=== PATIENT | male | born 1945 | race Hispanic/Latino ===

== ENCOUNTER 2017-07-05 10:16 | Observation (INO) | payer OTHER ==
[~2017-07-05] VITALS: Ht 167.6 cm; Wt 79.5 kg
[~2017-07-05 10:16] MED LIST: ATORVASTATIN CA20 MG PO; COUMADIN3 MG PO; GLIMEPIRIDE2 MG PO; LEVOCETIRIZINE D5 MG PO; LISINOPRIL10 MG PO; METFORMIN HCL500 M2 PO; METOPROLOL TART50 MG PO; PIOGLITAZONE HC45 MG PO
[2017-07-05] MEDS ORDERED: ONDANSETRON HCL 4 MG ORAL DISINTEGRATING TAB PO ONE (10:45)
[2017-07-05] MEDS ORDERED: CLONIDINE HCL 0.2 MG TAB PO ONE (10:45)
[2017-07-05 11:15] LABS: BASOPHILS # (AUTO) 0.1 (0.0-0.1); BASOPHILS % 0.8 % (0.0-1.0); EOSINOPHILS # (AUTO) 0.1 (0.0-0.4); EOSINOPHILS % 0.5 % (0.0-6.0); HEMATOCRIT 44.3 % (38.2-49.6); HEMOGLOBIN 15.5 g/dL (14.0-18.0); LYMPHOCYTES # (AUTO) 2.3 (1.0-3.2); LYMPHOCYTES % 23.9 % (18.0-39.1); MEAN CORPUSCULAR VOLUME 91.5 fL (81-99); MONOCYTES % 10.1 % (4.4-11.3); NEUTROPHILS # (AUTO) 6.3 (2.1-6.9); NEUTROPHILS % 64.4 % (38.7-80.0); PLATELET COUNT 262 x10e3/uL (140-360); RED BLOOD COUNT 4.84 x10e6/uL (4.3-5.7); RED CELL DISTRIBUTION WIDTH 13.5 % (11.7-14.4)
[2017-07-05 11:27] LABS: INR 1.25; PARTIAL THROMBOPLASTIN TIME 32.4 seconds (23.8-35.5); PROTHROMBIN TIME 14.8 seconds (11.9-14.5)
[2017-07-05 11:36] LABS: ALANINE AMINOTRANSFERASE 40 IU/L (0-55); ALBUMIN 4.1 g/dL (3.5-5.0); ALBUMIN/GLOBULIN RATIO 0.9 (0.8-2.0); ALKALINE PHOSPHATASE 75 IU/L (40-150); BLOOD UREA NITROGEN 30 mg/dL (7-26); BUN/CREATININE RATIO 18 (6-25); CALCIUM 9.6 mg/dL (8.4-10.2); CARBON DIOXIDE 18 mmol/L (22-29); CHLORIDE 96 mmol/L (98-107); CREATINE KINASE 73 IU/L (30-200); CREATININE, SERUM 1.69 mg/dL (0.72-1.25); EST GLOMERULAR FILTRATION RATE 40 ML/MIN (60-); GLUCOSE 163 mg/dL (74-118); SODIUM 133 mmol/L (136-145)
--- NOTE | 2017-07-05 11:39 | Diagnostic Imaging Report ---
PROCEDURE: CHEST SINGLE (PORTABLE) COMPARISON: None. INDICATIONS: HTN FINDINGS: The lungs are well-inflated. No focal airspace consolidation, pleural effusion, or pneumothorax. Tortuosity and atherosclerotic calcification of the thoracic aorta with otherwise normal heart size for technique. No pulmonary edema. No acute osseous abnormality. CONCLUSION: No acute cardiopulmonary abnormality. Dictated by: Too Pierce M.D. on 07/05/2017 at 11:42 Electronically approved by: Too Pierce M.D. on 07/05/2017 at 11:42
[2017-07-05] MEDS ORDERED: MAXZIDE 37.5 M1 EACH PO (13:25)
[2017-07-05] MEDS ORDERED: CRESTOR10 MG PO (13:25)
[2017-07-05] MEDS ORDERED: VITAMIN D1000 UNI1 PO (13:25)
[2017-07-05] MEDS ORDERED: WARFARIN SODIUM2 MG PO (13:25)
--- NOTE | 2017-07-05 15:21 | Diagnostic Imaging Report ---
Exam: Head CT without contrast History: Headache. Comparison studies: None Technique: Axial images were obtained from the skull base to the vertex. Coronal and sagittal images reconstructed from the axial data. Intravenous contrast: None Findings: Scalp: No abnormalities. Bones: No fractures, blastic or lytic lesions. Brain sulci: Mildly prominent. Ventricles: Mild compensatory dilatation. No hydrocephalus. Extra-axial spaces: No masses, no fluid collection. Parenchyma: No mass, acute hemorrhage or acute cortical vascular insults. There are chronic cortical-subcortical insults in the left frontal lobe and left parietal lobe in the left MCA territory and along the left MCA watershed border zone. Sellar/suprasellar region: No abnormalities. Craniocervical junction: Patent foramen magnum. No Chiari one malformation. Incidental findings: Atherosclerotic calcifications in the carotid siphons and left intradural vertebral artery. Bilateral intraocular lens replacements related to previous cataract surgery. IMPRESSION: No acute intracranial abnormalities. Chronic findings: 1. Mild generalized volume loss. 2. Left frontal and parietal insults in the left MCA territory/MCA border zone. Recommend cervical and intracranial CTA or MRA to exclude the possibility of significant left ICA or MCA disease. Signed by: Dr. Too Lovett M.D. on 07/05/2017 3:17 PM
[2017-07-05] MEDS ORDERED: ONDANSETRON HCL 4 MG ORAL DISINTEGRATING TAB PO PRN (16:30)
--- OUTSIDE RECORDS SUMMARY | 2017-07-05 16:39 | XMS REPORT ---
Author Author [facility] Address Unknown Phone Unavailable Care Team Providers Care Charter Pilot Name Role Phone AXEL LANDEROS Unavailable Unavailable Problems This patient has no known problems. Allergies, Adverse Reactions, Alerts This patient has no known allergies or adverse reactions. Medications This patient has no known medications. Results Test Description Test Time Test Comments Text Results Atomic Results Result Comments CHEST SINGLE (PORTABLE) [place] [address] Patient Name: DARY OLIVARES MR #: [id number] : 1945 Age/Sex: 72/M Req #: [id number] Adm Physician: Ordered by: MARIAN NARVAEZ SHIPFITTER APPRENTICE Report #: [id number] Location: ER Room/Bed: Procedure: [id number] DX/CHEST SINGLE (PORTABLE) Exam Date: 07/05/17 Exam Time: 1128 REPORT STATUS: Signed PROCEDURE: CHEST SINGLE (PORTABLE) COMPARISON: None. INDICATIONS: HTN FINDINGS: The lungs are well-inflated. No focal airspace consolidation, pleural effusion, or pneumothorax. Tortuosity and atherosclerotic calcification of the thoracic aorta with otherwise normal heart size for technique. No pulmonary edema. No acute osseous abnormality. CONCLUSION: No acute cardiopulmonary abnormality. Dictated by: Merlyn Estrada M.D. on 07/05 at 11:42 Electronically approved by: Merlyn Estrada M.D. on 2017 at 11:42 Dictated By: MERLYN ESTRADA MD 1142 Transcribed By: ROBIN on 07/05/17 1142 COPY TO: MARIAN NARVAEZ NP CT BRAIN WO [place] [id number] [place] [address] Patient Name: DARY OLIAVRES MR #: [id number] : 1945 Age/Sex: 72/M Req # : [id number] Adm Physician: Ordered by: MARIAN NARVAEZ NP Report #: [id number] Location: ER Room/Bed: Procedure: [id number] CT/CT BRAIN WO Exam Date: 07/05/17 Exam Time: 1120 REPORT STATUS: Signed Exam: Head CT without contrast History: Headache. Comparison studies: None Technique: Axial images were obtained from the skull base to the vertex. Coronal and sagittal images reconstructed from the axial data. Intravenous contrast: None Findings: Scalp: No abnormalities. Bones: No fractures, blastic or lytic lesions. Brain sulci: Mildly prominent. Ventricles: Mild compensatory dilatation. No hydrocephalus. Extra-axial spaces: No masses, no fluid collection. Parenchyma: No mass, acute hemorrhage or acute cortical vascular insults. There are chronic cortical-subcortical insults in the left frontal lobe and left parietal lobe in the left MCA territory and along the left MCA watershed border zone. Sellar/suprasellar region: No abnormalities. Craniocervical junction: Patent foramen magnum. No Chiari one malformation. Incidental findings: Atherosclerotic calcifications in the carotid siphons and left intradural vertebral artery. Bilateral intraocular lens replacements related to previous cataract surgery. IMPRESSION: No acute intracranial abnormalities. Chronic findings: 1. Mild generalized volume loss. 2. Left frontal and parietal insults in the left MCA territory/MCA border zone. Recommend cervical and intracranial CTA or MRA to exclude the possibility of significant left ICA or MCA disease. Signed by: Dr. Merlyn Lovett M.D. on 07/05/2017 3:17 PM Dictated By: MERLYN LOVETT MD [id number] Transcribed By: DAVIE on 07/05/17 3866 COPY TO: MARIAN NARVAEZ NP
[2017-07-05] MEDS ORDERED: DEXTROSE 50% SYRINGE 50 ML IV PRN (16:45)
[2017-07-05] MEDS ORDERED: NON-FORMULARY MEDICATION (Levocetirizine Dihydrochloride 5 MG) PO SCH (17:00)
[2017-07-05] MEDS ORDERED: LORATADINE 10 MG TAB PO PRN (17:15)
[2017-07-05 18:15] VITALS: BP 209/115
[2017-07-05 18:20] VITALS: BP 209/115
[2017-07-05] MEDS ORDERED: LISINOPRIL 20 MG TAB PO ONE (18:30)
[2017-07-05] MEDS: METFORMIN HCL 500 MG TAB CR PO SCH (18:40)
[2017-07-05] MEDS: METOPROLOL TARTRATE 50 MG TAB PO SCH (18:40)
[2017-07-05 19:10] VITALS: BP 152/80
[2017-07-05] MEDS: INSULIN REGULAR, HUMAN 100 UNIT/1 ML 3ML VIAL SQ SCH (20:34)
[2017-07-05] MEDS ORDERED: ATORVASTATIN 20 MG TAB PO SCH (21:00)
[2017-07-05] MEDS ORDERED: SIMVASTATIN 20 MG TAB PO SCH (21:00)
[2017-07-05] MEDS ORDERED: SIMVASTATIN 40 MG TAB PO SCH (21:00)
[2017-07-06] VITALS: BP 100/65
[2017-07-06 00:09] VITALS: BP 80/55
[2017-07-06 01:03] VITALS: BP 100/65
[2017-07-06 05:00] VITALS: BP 99/58
[2017-07-06 05:38] VITALS: BP 99/58
[2017-07-06 06:09] LABS: BASOPHILS % 0.6 % (0.0-1.0); EOSINOPHILS # (AUTO) 0.2 (0.0-0.4); HEMOGLOBIN 12.7 g/dL (14.0-18.0); LYMPHOCYTES # (AUTO) 2.5 (1.0-3.2); LYMPHOCYTES % 37.9 % (18.0-39.1); MEAN CORPUSCULAR HEMOGLOBIN 31.8 pg (28-32); MEAN CORPUSCULAR HGB CONC 34.3 g/dL (31-35); MEAN CORPUSCULAR VOLUME 92.5 fL (81-99); MONOCYTES # (AUTO) 0.8 (0.2-0.8); MONOCYTES % 12.4 % (4.4-11.3); NEUTROPHILS % 45.9 % (38.7-80.0); PLATELET COUNT 212 x10e3/uL (140-360); RED CELL DISTRIBUTION WIDTH 13.6 % (11.7-14.4)
[2017-07-06 06:52] LABS: ALBUMIN 3.3 g/dL (3.5-5.0); ALBUMIN/GLOBULIN RATIO 1.1 (0.8-2.0); ANION GAP 15.6 mmol/L (8-16); CALCIUM 8.7 mg/dL (8.4-10.2); CREATININE, SERUM 2.83 mg/dL (0.72-1.25); POTASSIUM 3.6 mmol/L (3.5-5.1)
[2017-07-06 06:53] LABS: INR 1.4; PROTHROMBIN TIME 16.1 seconds (11.9-14.5)
[2017-07-06 06:54] LABS: PARTIAL THROMBOPLASTIN TIME 34.7 seconds (23.8-35.5)
[2017-07-06] MEDS: INSULIN REGULAR, HUMAN 100 UNIT/1 ML 3ML VIAL SQ SCH (07:25)
[2017-07-06] MEDS ORDERED: PIOGLITAZONE HCL 15 MG TAB PO SCH (07:30)
[2017-07-06] MEDS ORDERED: GLIMEPIRIDE 2 MG TAB PO SCH (07:30)
[2017-07-06 07:32] VITALS: BP 109/47
[2017-07-06] MEDS: METOPROLOL TARTRATE 50 MG TAB PO SCH (07:55)
[2017-07-06] MEDS: METFORMIN HCL 500 MG TAB CR PO SCH (08:10)
[2017-07-06] MEDS ORDERED: TRIAMTERENE/HCTZ 37.5-25 MG TAB PO SCH (09:00)
[2017-07-06] MEDS ORDERED: LISINOPRIL 20 MG TAB PO SCH (09:00)
[2017-07-06] MEDS ORDERED: CHOLECALCIFEROL 1,000 UNIT TAB PO SCH (09:00)
[2017-07-06] MEDS ORDERED: SIMVASTATIN 40 MG TAB PO SCH (09:00)
[2017-07-06] MEDS ORDERED: PIOGLITAZONE HCL 45 MG TAB PO SCH (09:00)
[2017-07-06] MEDS ORDERED: METOPROLOL TARTRATE 50 MG TAB PO SCH (09:00)
[2017-07-06] MEDS ORDERED: LISINOPRIL 10 MG TAB PO SCH (09:00)
[2017-07-06] MEDS ORDERED: NIFEDIPINE CR 30 MG TAB PO ONE (10:45)
[2017-07-06] MEDS ORDERED: WARFARIN SOD 2 MG TAB PO SCH (17:00)
== END 2017-07-06 10:30 | disposition home or self-care (01) ==
LOC: ER 10:16 → ERHOLD 16:36 → IMCU 17:27
PROVIDERS: ADMIT Internal Medicine; ATTEND Internal Medicine
DX: R51 Headache (principal); E87.1 Hypo-osmolality and hyponatremia; I10 Essential (primary) hypertension; R11.2 Nausea with vomiting, unspecified
CPT/HCPCS: 36415 ×2; 70450; 71045; 80053 ×2; 82550; 82553; 82948 ×2; 84484; 85025 ×2; 85610 ×2; 85730 ×2; 93005; 99284; G0378 ×2

== ENCOUNTER 2018-01-18 08:55 | Emergency (ER) | payer OTHER ==
[~2018-01-18] VITALS: Ht 167.6 cm; Wt 79.4 kg
[~2018-01-18 08:55] MED LIST changes: +CRESTOR10 MG PO; +MAXZIDE 37.5 M1 EACH PO; +VITAMIN D1000 UNI1 PO; +WARFARIN SODIUM2 MG PO
[2018-01-18] MEDS ORDERED: PHYTONADIONE 10 MG/ML AMP SQ NR (09:30)
[2018-01-18 09:39] LABS: BASOPHILS # (AUTO) 0.1 (0.0-0.1); BASOPHILS % 0.7 % (0.0-1.0); EOSINOPHILS # (AUTO) 0.5 (0.0-0.4); EOSINOPHILS % 4.2 % (0.0-6.0); HEMATOCRIT 34.3 % (38.2-49.6); HEMOGLOBIN 12.4 g/dL (14.0-18.0); LYMPHOCYTES # (AUTO) 2.5 (1.0-3.2); LYMPHOCYTES % 22.7 % (18.0-39.1); MEAN CORPUSCULAR HEMOGLOBIN 30.5 pg (28-32); MEAN CORPUSCULAR HGB CONC 36.2 g/dL (31-35); MEAN CORPUSCULAR VOLUME 84.3 fL (81-99); MONOCYTES % 8.8 % (4.4-11.3); NEUTROPHILS # (AUTO) 6.9 (2.1-6.9); NEUTROPHILS % 63.1 % (38.7-80.0); PLATELET COUNT 237 x10e3/uL (140-360); RED BLOOD COUNT 4.07 x10e6/uL (4.3-5.7); RED CELL DISTRIBUTION WIDTH 12.2 % (11.7-14.4)
[2018-01-18 09:52] LABS: INR 5.79; PROTHROMBIN TIME 55.6 seconds (11.9-14.5)
[2018-01-18 10:01] LABS: ALBUMIN 3.4 g/dL (3.5-5.0); ALBUMIN/GLOBULIN RATIO 0.9 (0.8-2.0); ANION GAP 16.6 mmol/L (8-16); CALCIUM 9.3 mg/dL (8.4-10.2); CREATININE, SERUM 3.09 mg/dL (0.72-1.25); POTASSIUM 3.6 mmol/L (3.5-5.1)
[2018-01-18 12:12] LABS: INR 5.79; PROTHROMBIN TIME 55.6 seconds (11.9-14.5)
[2018-01-18 13:02] VITALS: BP 128/72
== END 2018-01-18 12:55 | disposition home or self-care (01) ==
LOC: ER 08:55
DX: Z03.89 Encounter for observation for other suspected diseases and conditions ruled out (principal)
CPT/HCPCS: 36415; 80053; 85025; 85610; 86850; 86900; 99283; J3430

== ENCOUNTER 2019-04-11 10:24 | Inpatient (IN) | payer OTHER ==
[~2019-04-11] VITALS: Ht 167.6 cm; Wt 75.7 kg
[2019-04-11 11:04] LABS: BASOPHILS % 0.5 % (0.0-1.0); EOSINOPHILS % 0.3 % (0.0-6.0); HEMATOCRIT 34.9 % (38.2-49.6); HEMOGLOBIN 11.9 g/dL (14.0-18.0); LYMPHOCYTES # (AUTO) 0.6 (1.0-3.2); LYMPHOCYTES % 8.1 % (18.0-39.1); MEAN CORPUSCULAR HEMOGLOBIN 30.1 pg (28-32); MEAN CORPUSCULAR HGB CONC 34.1 g/dL (31-35); MEAN CORPUSCULAR VOLUME 88.1 fL (81-99); MONOCYTES # (AUTO) 1.2 (0.2-0.8); MONOCYTES % 15.7 % (4.4-11.3); NEUTROPHILS # (AUTO) 5.4 (2.1-6.9); NEUTROPHILS % 73.4 % (38.7-80.0); PLATELET COUNT 179 x10e3/uL (140-360); RED BLOOD COUNT 3.96 x10e6/uL (4.3-5.7); RED CELL DISTRIBUTION WIDTH 14.2 % (11.7-14.4)
[2019-04-11 11:20] LABS: INR 1.64; PROTHROMBIN TIME 20.6 seconds (11.9-14.5)
[2019-04-11 11:21] LABS: PARTIAL THROMBOPLASTIN TIME 42.7 seconds (23.8-35.5)
--- NOTE | 2019-04-11 11:22 | Diagnostic Imaging Report ---
EXAMINATION: CHEST SINGLE (PORTABLE) INDICATION: Dizziness COMPARISON: None FINDINGS: LINES/TUBES:None LUNGS:The lungs are well-inflated. No focal consolidation or pulmonary edema. PLEURA:No pleural effusion or pneumothorax. MEDIASTINUM:The cardiomediastinal silhouette appears normal in size and shape. BONES/SOFT TISSUES:No acute osseous injury. ABDOMEN:No free air under the diaphragm. IMPRESSION: No focal pneumonia or pulmonary edema. Signed by: Krishan Concepcion MD on 04/11/2019 11:20 AM
[2019-04-11 11:38] LABS: CREATINE KINASE MB 64.9 ng/mL (0-5.0)
[2019-04-11 11:40] LABS: ALBUMIN 3.7 g/dL (3.5-5.0); ALBUMIN/GLOBULIN RATIO 0.8 (0.8-2.0); ANION GAP 16.2 mmol/L (8-16); CALCIUM 9.1 mg/dL (8.4-10.2); CREATININE, SERUM 3.92 mg/dL (0.72-1.25); POTASSIUM 3.2 mmol/L (3.5-5.1)
--- NOTE | 2019-04-11 11:42 | Diagnostic Imaging Report ---
Exam: Head CT without contrast History: Dizziness Comparison studies: Head CT 07/05/2017 Technique: Axial images were obtained from the skull base to the vertex. Coronal and sagittal images reconstructed from the axial data. Dose modulation, iterative reconstruction, and/or weight based adjustment of the mA/kV was utilized to reduce the radiation dose to as low as reasonably achievable. Radiation dose: Total DLP: 921.4 mGy*cm. Estimated effective dose: DLP x 0.015 Intravenous contrast: None Findings: Scalp: No abnormalities. Bones: No fractures, blastic or lytic lesions. Brain sulci: Mildly prom. Ventricles: Mild compensatory dilatation. No hydrocephalus. Extra-axial spaces: No masses, no fluid collection. Parenchyma: No mass, acute hemorrhage or acute cortical insults. Chronic cortical/subcortical insults in the left frontal lobe and left parietal lobe along the left MCA along the external cortical and internal watershed border zones. Small chronic left striatocapsular lacunar and left anterior thalamocapsular lacunar infarcts are retrospectively present on the prior exam but are more conspicuous on the current exam due to differences in imaging technique. No mass, acute hemorrhage or acute cortical insults. Sellar/suprasellar region: No abnormalities. Craniocervical junction: Patent foramen magnum. No Chiari one malformation. Incidental findings: Bilateral intraocular lens or placement. Atherosclerotic calcifications in the carotid siphons. An in the left intradural vertebral artery. IMPRESSION: No acute intracranial abnormalities or changes from the prior head CT of 07/05/2017. Chronic findings: 1. Mild generalized parenchymal volume loss. 2. Chronic left frontal and parietal infarcts along the left MCA watershed/border zone and chronic left striatocapsular and thalamocapsular lacunar infarcts. Signed by: Dr. Too Lovett M.D. on 04/11/2019 11:40 AM
[2019-04-11] MEDS ORDERED: SODIUM CHLORIDE 0.9% 1000ML 1,000 ML IV STA ×2 (12:09→14:46)
[2019-04-11 13:14] LABS: CLARITY,URINE CLEAR (CLEAR); COLOR,URINE YELLOW (YELLOW); LEUKOCYTE ESTERASE ,URINE NEGATIVE (NEGATIVE); NITRITE,URINE NEGATIVE (NEGATIVE); PROTEIN,URINE DIPSTICK 3+ (NEGATIVE)
[2019-04-11 13:15] LABS: BILIRUBIN,URINE NEGATIVE (NEGATIVE); KETONES,URINE NEGATIVE (NEGATIVE); URINE UROBILINOGEN 0.2 mg/dL (0.2 - 1)
[2019-04-11 13:28] LABS: BACTERIA,URINE RARE /HPF; EPITHELIAL CELLS,URINE FEW /LPF
[2019-04-11] MEDS ORDERED: SODIUM BICARBONATE 8.4% SYRING 150 ML in DEXTROSE 5% 1,000 ML IV NR (15:00)
[2019-04-11] MEDS ORDERED: ONDANSETRON HCL INJ 2MG/ML 2ML 2 MG/ML VIAL IV PRN (15:00)
[2019-04-11] MEDS: CEFTRIAXONE SOD 1 GM/NS 50 ML 50 ML IV SCH (15:37)
--- NOTE | 2019-04-11 15:53 | NUR ---
2nd liter bolus infusing, rocepin ivpb initiated. Crackers and lawton given, awaiting dinner tray. Awaiting inpatient bed.
[2019-04-11 18:47] LABS: CREATINE KINASE MB 63.6 ng/mL (0-5.0)
[2019-04-11 20:00] VITALS: BP 130/67
--- NOTE | 2019-04-11 22:00 | NUR ---
PATIENT IS RESTING IN BED AOX3, NO SIGNS OF RESPIRATORY DISTRESS NOTED. IS AT BEDSIDE AND PATIENT VOICES NO PAIN AT THIS TIME. IV FLUIDS ARE RUNNING AT ORDERED RATE AND PATIENT VOICED THAT THEY WILL USE CALL LIGHT ASK FOR ASSISTANCE TO AMBULATE. BED IS IN LOWEST POSITION, BOTH SIDE RAILS ARE UP, CALL LIGHT WITHIN REACH WILL CONTINUE TO MONITOR.
[2019-04-11 23:25] VITALS: BP 130/67
--- NOTE | 2019-04-11 23:44 | Consultation ---
DATE OF CONSULTATION: 04/11/2019 HISTORY OF PRESENT ILLNESS: Mr. Kevon Fenton is a 74-year-old gentleman, who is a relatively poor historian. Apparently brought by his because the patient was feeling " wobbly" as well as quite weak. There was some reported nausea earlier and vomiting, but that has subsided. He is currently awake, alert, following commands, very poor historian. Denies any headache, fever, chills, chest pain, or shortness of breath. He has existing history of hyperlipidemia and hypertension. Sees renal specialist as an outpatient for his chronic kidney disease. LABORATORY DATA: His labs show white count 7.4, hemoglobin is 11.9. Sodium 138, potassium 3.2, bicarbonate 18, BUN 35, creatinine 3.92. CK 6005. His urinalysis shows dipstick positive protein, 3+ blood, 6 to 10 rbc's, 11 to 20 wbc's. The is not sure if the patient had any fever. ALLERGIES: THERE ARE NO REPORTED DRUG ALLERGIES. CURRENT MEDICATIONS: The patient receiving ceftriaxone 1 g IV q.12h. we gave him 2 L normal saline bolus. Currently, he is on D5 water with 3 amps of bicarb. He follows up with Dr. Patel as an outpatient. Has been on atorvastatin at home along with levocetirizine on a p.r.n. basis, metoprolol and Coumadin. Here, he had an INR done, which showed an INR 1.64. Imaging studies had a brain CT, which was reported as no acute intracranial abnormality, chronic left frontal and parietal infarcts around his left MCA, and chest x-ray shows no focal pneumonia or pulmonary edema. PAST MEDICAL HISTORY: As above including history of CVA three times. No history of UT or coronary artery disease apparently, but history of chronic kidney disease, most likely stage 3. PHYSICAL EXAMINATION: GENERAL: The patient is lying supine, in no apparent distress. VITAL SIGNS: Blood pressure of 129/68, pulse 87, afebrile, oxygen saturation 100%. HEAD AND NECK: Arcus senilis noted. Oral mucosa dry. Neck veins flat. LUNGS: Supine exam, relatively clear. No rales. HEART: S1 and S2 audible. ABDOMEN: Otherwise soft, nontender. No apparent visceromegaly. Impact percussion noted over the bladder area, which could be suggestive of distended bladder. EXTREMITIES: Lower extremities; no edema. IMPRESSION AND PLAN: Acute kidney injury in a patient with chronic kidney disease stage 3, hypokalemia, rhabdomyolysis. Agree to discontinue Lipitor. We will have a Valadez catheter placed. Obtain urine chemistries, calculate fraction excretion of sodium. Continue IV hydration. I will send urine culture. Continue with IV bicarbonate, attempt to alkalinize urine. Agree with empiric antibiotics. No acute CVA on CT scan. Right-sided lower extremity weakness noted. Please see orders. MD JODY Calle/MODL /[id number]
[2019-04-12] VITALS (8 sets, daily range): BP systolic 104–143; BP diastolic 50–71
[2019-04-12] MEDS: CEFTRIAXONE SOD 1 GM/NS 50 ML 50 ML IV SCH ×2 (03:48→14:48)
[2019-04-12 06:13] LABS: BASOPHILS % 0.6 % (0.0-1.0); EOSINOPHILS % 0.4 % (0.0-6.0); HEMATOCRIT 28.7 % (38.2-49.6); HEMOGLOBIN 9.9 g/dL (14.0-18.0); LYMPHOCYTES # (AUTO) 1.4 (1.0-3.2); LYMPHOCYTES % 28.2 % (18.0-39.1); MEAN CORPUSCULAR HEMOGLOBIN 30.2 pg (28-32); MEAN CORPUSCULAR HGB CONC 34.5 g/dL (31-35); MEAN CORPUSCULAR VOLUME 87.5 fL (81-99); MONOCYTES # (AUTO) 0.8 (0.2-0.8); NEUTROPHILS # (AUTO) 2.6 (2.1-6.9); NEUTROPHILS % 53.4 % (38.7-80.0); PLATELET COUNT 160 x10e3/uL (140-360); RED BLOOD COUNT 3.28 x10e6/uL (4.3-5.7); RED CELL DISTRIBUTION WIDTH 14.2 % (11.7-14.4)
[2019-04-12 06:51] LABS: ALBUMIN 2.8 g/dL (3.5-5.0); ALBUMIN/GLOBULIN RATIO 0.8 (0.8-2.0); ANION GAP 10.6 mmol/L (8-16); CALCIUM 7.6 mg/dL (8.4-10.2); CREATININE, SERUM 3.44 mg/dL (0.72-1.25)
[2019-04-12 06:58] LABS: POTASSIUM 2.6 mmol/L (3.5-5.1)
--- NOTE | 2019-04-12 08:16 | NUR ---
Attempted to call Dr. Toledo regarding potassium level 2.6. Awaiting call back
[2019-04-12] MEDS ORDERED: TRAZODONE HCL50 MG PO (08:41)
[2019-04-12] MEDS ORDERED: TRIAMTERENE-HCTZ1 EA PO (08:41)
[2019-04-12] MEDS ORDERED: CRESTOR10 MG PO (08:41)
[2019-04-12] MEDS ORDERED: GLIMEPIRIDE2 MG PO (08:41)
[2019-04-12] MEDS ORDERED: AMLODIPINE BESYL5 MG PO (08:41)
[2019-04-12] MEDS ORDERED: WARFARIN SOD 2 MG TAB PO SCH (09:00)
[2019-04-12] MEDS ORDERED: SIMVASTATIN 40 MG TAB PO SCH (09:00)
--- NOTE | 2019-04-12 09:27 | NUR ---
Nutrition Screen Note RD Recommendation for Physician: -Continue current diet per MD. -Consider renal diet pending renal lab trends. Plan of Care: RD following, monitoring for tolerance and adequacy. Education provided,. Nutrition reason for involvement: Diagnosis Primary Diagnose(s): Acute on chronic renal failure PMH: HLD, HTN, CKD Ht: 66 in Wt: 167 lb BMI: 27.0 kg/m2 IBW: [address] Assessment: (04/11) : 74 YOM admitted for renal failure with PMH listed above. The pt was seen resting in bed with at bedside. The answered all questions. She reported the pt has a good appetite and denied any recent weight loss. Pt appears nourished. The pt has not had a BM yet here in the hospital, encouraged the pt if pt begins to have constipation to let the MD know. She denied N/V/chewing or swallowing issues for the pt as well as any food allergies. She was open to accepted education regarding SHREYAS and CKD diet education. K-2.6, being replaced. Chart reviewed. Labs and meds reviewed. Will continue to monitor. Current Diet: cardiac diet Malnutrition Evaluation 04/11 The patient does not meet criteria for a specified degree of malnutrition at this time. Will re-evaluate at follow-up as appropriate. Diet Education Needs Assessment: Diet education indicated, - agreeable Diet Adequacy: Meeting calorie needs, Meeting protein needs Learner(s): pts Barriers: none Cultural/Language Modifications: none Readiness: acceptance Method: discussion, handout Topics: SHREYAS and CKD renal diet MNT Understanding/Compliance: verbalized understanding, anticipate good compliance Nutrition Care Level: low Addendum: 04/12/19 at 0930 by Vaishali No DIET signed: Vaishali No RD, LD
[2019-04-12] MEDS: DEXTROSE 5%/0.9% SOD CHL 1,000 ML IV SCH ×2 (09:36→17:00)
[2019-04-12] MEDS: AMLODIPINE BESYLATE 5 MG TAB PO SCH (09:36)
[2019-04-12 09:50] LABS: CREATINE KINASE MB 31.5 ng/mL (0-5.0)
[2019-04-12] MEDS ORDERED: POTASSIUM CHLORIDE 10MEQ EA PO ONE (09:50)
--- NOTE | 2019-04-12 10:05 | NUR ---
Patient educated on using the urinal to measure accurate output. Also, let him know when he has a BM a sample needs to be collected
[2019-04-12] MEDS ORDERED: LEVOTHYROXINE50 MCG PO (10:29)
[2019-04-12] MEDS ORDERED: METOPROLOL TART50 MG PO (10:29)
--- NOTE | 2019-04-12 13:32 | NUR ---
Stool sample collected and taken to lab
[2019-04-12] MEDS ORDERED: POTASSIUM CHLORIDE 20MEQ/100ML 200 ML IV ONE (15:00)
--- NOTE | 2019-04-12 15:42 | Diagnostic Imaging Report ---
Renal ultrasound, 04/12/2019. History: SHREYAS. Discussion: Transverse and longitudinal images of the kidneys were obtained demonstrating normal renal sizes and echogenicities. There is no evidence of hydronephrosis, mass, or renal calculus. The right kidney measures 10.0 cm and the left kidney measures 10.9 cm in length. Renal cortex measures 1.4 and 1.8 cm respectively. The urinary bladder is unremarkable. Bilateral ureteral jets are identified. Bladder volume measures 40 mL. There is no evidence of free fluid. IMPRESSION: Normal renal ultrasound. Signed by: Trever Lal on 04/12/2019 3:40 PM
[2019-04-12] MEDS ORDERED: POTASSIUM CHLORIDE 20MEQ/100ML 300 ML IV ONE (16:00)
--- NOTE | 2019-04-12 16:34 | History and Physical ---
CHIEF COMPLAINT: Lethargic, hypoglycemia, and slurred speech. HISTORY OF PRESENT ILLNESS: The patient is a 74-year-old male with chronic kidney disease stage 3, apparently he was on glimepiride diabetic medication and came in with increase in altered mental status more lethargic. His blood sugar was in 40 to 50. The patient was unable to do much at home because of his lethargy and sometimes unresponsive and also rhabdomyolysis. The patient's CK level was elevated at 6000. The patient was also dehydrated as well. The patient has not been eating or drinking. The patient is also having problem with his mobility. PAST MEDICAL HISTORY: 1. Diabetes type 2 on Amaryl. 2. Hypertension. 3. History of chronic CVA. 4. Dyslipidemia. 5. Chronic kidney disease stage 3. 6. Atrial fibrillation on anticoagulant therapy. PAST SURGICAL HISTORY: Cataract surgery. SOCIAL HISTORY: The patient lives at home with his family. No alcohol. No tobacco. ALLERGIES: NO KNOWN ALLERGIES. HOME MEDICATIONS: The patient was on: 1. Norvasc. 2. Glimepiride 2 mg twice a day. 3. Crestor. 4. Trazodone. 5. Dyazide. 6. Warfarin 2 mg daily. PHYSICAL EXAMINATION: VITAL SIGNS: Temperature is 98.5, blood pressure is 162/80, pulse rate is 107, and respirations 18. GENERAL: The patient is not in acute distress. He is awake now. HEENT: Normocephalic and atraumatic. Anicteric. NECK: Supple grossly. PULMONARY: Diminished breath sounds. CARDIOVASCULAR: Regular rate and rhythm. ABDOMEN: Soft. EXTREMITIES: No cyanosis or edema. NEUROLOGIC: The patient is awake with some confusion. LABORATORY DATA: Sodium is 138, potassium 3.6, chloride 106, bicarb 24, BUN is 35, and creatinine is 3.4. Glucose is 51. AST 127 and ALT 50. Alkaline phosphatase is 50. CK level was 6000. Troponin 0.07. WBC 4.8, hemoglobin 9.9, hematocrit 28.7, and platelets 160. Urinalysis unremarkable other than 2+ protein. Coagulation INR is 1.6. IMAGING DATA: CT scan of the brain showed that the patient had no acute abnormality. There is chronic left frontal and parietal infarct along the left middle cerebral artery watershed border zone and chronic left striata, capsular and thalamocapsular lacunar infarct. Chest x-ray otherwise unremarkable. IMPRESSION: 1. Hypoglycemic episode inducing lethargy, altered mental status, slurred speech and overall decline in ability to do ADLs. 2. Rhabdomyolysis secondary to the above, most likely. 3. Chronic kidney disease also contributing to metabolism of the diabetic medication Amaryl. PLAN: Stop diuretic and Amaryl and hold off on statin right now because of the patient's rhabdomyolysis. Place the patient on D5 normal saline at 125 cc an hour gently. Continue to replace electrolytes. Renal consult with Dr. Masoud Toledo. We will obtain a blood workup including A1c, thyroid function test, electrolytes, and renal function. MD MUNIRA Lucas/MODL /[id number]
[2019-04-12] MEDS: WARFARIN SOD 2 MG TAB PO SCH (17:33)
--- NOTE | 2019-04-12 19:07 | NUR ---
Dr. Torres notified of positive occult blood result. No new orders received.
[2019-04-12] MEDS ORDERED: TRAZODONE HCL 50 MG TAB PO PRN (21:00)
--- NOTE | 2019-04-12 21:52 | NUR ---
SPOKE TO DR. KIDD REGARDING BLOOD GLUCOSE READING 354. ORDERED TO STOP IV FLUID D5NS. NO INSULIN ORDERED
[2019-04-12] MEDS ORDERED: SODIUM CHLORIDE 0.9% 250ML 250 ML ONE (22:03)
[2019-04-13] VITALS (8 sets, daily range): BP systolic 104–132; BP diastolic 53–72
[2019-04-13] MEDS: CEFTRIAXONE SOD 1 GM/NS 50 ML 50 ML IV SCH ×2 (02:44→15:15)
[2019-04-13 05:55] LABS: BASOPHILS % 0.5 % (0.0-1.0); EOSINOPHILS # (AUTO) 0.2 (0.0-0.4); EOSINOPHILS % 3.6 % (0.0-6.0); HEMATOCRIT 30.1 % (38.2-49.6); HEMOGLOBIN 10.2 g/dL (14.0-18.0); LYMPHOCYTES # (AUTO) 1.4 (1.0-3.2); LYMPHOCYTES % 32.3 % (18.0-39.1); MEAN CORPUSCULAR HEMOGLOBIN 29.8 pg (28-32); MEAN CORPUSCULAR HGB CONC 33.9 g/dL (31-35); MONOCYTES # (AUTO) 0.7 (0.2-0.8); MONOCYTES % 16.2 % (4.4-11.3); PLATELET COUNT 173 x10e3/uL (140-360); RED BLOOD COUNT 3.42 x10e6/uL (4.3-5.7); RED CELL DISTRIBUTION WIDTH 14.3 % (11.7-14.4)
[2019-04-13 06:25] LABS: ALBUMIN 2.9 g/dL (3.5-5.0); ALBUMIN/GLOBULIN RATIO 0.9 (0.8-2.0); ANION GAP 10.5 mmol/L (8-16); CALCIUM 7.8 mg/dL (8.4-10.2); CREATININE, SERUM 2.97 mg/dL (0.72-1.25); POTASSIUM 3.5 mmol/L (3.5-5.1)
[2019-04-13 06:37] LABS: MAGNESIUM 1.5 MG/DL (1.3-2.1)
--- NOTE | 2019-04-13 07:12 | NUR ---
Received patient lying in bed with eyes open. Respiration even and unlabored without SOB. family member at bedside. Call light in reach.
[2019-04-13] MEDS: AMLODIPINE BESYLATE 5 MG TAB PO SCH (08:46)
[2019-04-13] MEDS ORDERED: DEXTROSE 50% SYRINGE 50 ML IV PRN (12:30)
[2019-04-13] MEDS ORDERED: POTASSIUM CHLORIDE 20 MEQ TAB CR PO NR (12:30)
[2019-04-13] MEDS: INSULIN LISPRO 100 UNIT/1 ML 3ML VIAL SQ SCH ×3 (12:43→21:06)
[2019-04-13] MEDS: SODIUM CHLORIDE 0.9% 1000ML 1,000 ML IV SCH ×2 (13:00→23:45)
[2019-04-13] MEDS: WARFARIN SOD 2 MG TAB PO SCH (18:14)
--- NOTE | 2019-04-13 19:15 | NUR ---
Report given to maintenance technician 2nd shift. Respiration even and unlabored without SOB. Call light in reach.
[2019-04-14 00:29] VITALS: BP 146/70
[2019-04-14] MEDS: CEFTRIAXONE SOD 1 GM/NS 50 ML 50 ML IV SCH (03:10)
[2019-04-14 05:51] VITALS: BP 123/74
[2019-04-14 06:43] LABS: ALBUMIN 2.9 g/dL (3.5-5.0); ALBUMIN/GLOBULIN RATIO 0.9 (0.8-2.0); ANION GAP 12.3 mmol/L (8-16); CALCIUM 7.8 mg/dL (8.4-10.2); CREATININE, SERUM 2.47 mg/dL (0.72-1.25); POTASSIUM 3.3 mmol/L (3.5-5.1)
--- NOTE | 2019-04-14 07:00 | NUR ---
Received bedside shift report from off going nurse. Patient resting at this time, denies pain. Call light within reach.
[2019-04-14] MEDS: INSULIN LISPRO 100 UNIT/1 ML 3ML VIAL SQ SCH (07:30)
[2019-04-14 08:26] VITALS: BP 109/54
[2019-04-14 08:53] VITALS: BP 109/54
[2019-04-14] MEDS: AMLODIPINE BESYLATE 5 MG TAB PO SCH (08:55)
[2019-04-14] MEDS: SODIUM CHLORIDE 0.9% 1000ML 1,000 ML IV SCH (08:55)
[2019-04-14] MEDS ORDERED: POTASSIUM CHLORIDE 10MEQ EA PO ONE (10:45)
[2019-04-14] MEDS ORDERED: POTASSIUM CHLORIDE 20 MEQ TAB CR PO STA (11:32)
[2019-04-14] MEDS ORDERED: POTASSIUM CHLORIDE 20 MEQ TAB CR PO ONE (11:45)
[2019-04-14 12:33] VITALS: BP 127/63
--- NOTE | 2019-04-14 15:17 | Discharge Summary ---
PRIMARY CARE PHYSICIAN: Dr. Canelo Patel. ENTRY LEVEL ACCOUNT EXECUTIVE: Dr. Masoud Toledo. FINAL DIAGNOSES: 1. Severe hypoglycemia, blood sugar in the 30-40, associated with lethargy and rhabdomyolysis secondary to immobilization. 2. Acute kidney injury, resolving. 3. Chronic kidney disease, stage 3. 4. Chronic anemia. 5. Status post dehydration. 6. Status post rhabdomyolysis. SUMMARY: A 74-year-old male was on high dose Amaryl. The patient does have chronic kidney disease. His glycohemoglobin A1c was 7.2. The patient came to the hospital with some neurological symptoms secondary to low blood sugar. The patient's blood sugar was in the 50 at home and also chronically low as well. The patient is stable. He is on warfarin for his atrial fibrillation. The patient's vital signs are stable. He was hypotensive due to dehydration. The patient at baseline. He was on diuretic including Dyazide 37.5/25 mg one tablet. He is also on Amaryl 2 mg twice a day along with the Crestor 40 mg daily. He came in with rhabdomyolysis multifactorial contributed to the patient's symptoms. Currently, the patient is stable. Vital signs are stable. He is able to eat and drink. He is back to his baseline. Spouse is very supportive and want to take the patient home. He will go home today. DISCHARGE MEDICATIONS: Including Norvasc 5 mg daily, levothyroxine 50 mcg daily, metoprolol tartrate 50 mg daily, trazodone 50 mg at bedtime, and continue with his warfarin the same. The patient will take Hemocyte Plus one tablet daily. Glucotrol XL 2.5 mg daily. The patient to follow up with Dr. Patel for his adjustment of his medication. I also discussed with the patient regarding the fecal for occult blood positive, although his hemoglobin and hematocrit are stable, trending upward as matter of 9.9 hemoglobin and then 10.2. No gross bleed. I advised the patient to follow up with electric scoop operator for outpatient endoscopy screening. The patient is otherwise stable, discharged home today. Medication reconciliation was done. MD MUNIRA Lucas/SHARON /[id number]
== END 2019-04-14 13:25 | disposition home or self-care (01) | DRG 682 ==
LOC: ER 10:27 → ERHOLD 14:58 → MED/SURG 20:50
PROVIDERS: ADMIT Internal Medicine; ATTEND Internal Medicine
DX: N17.9 Acute kidney failure, unspecified (principal); G93.41 Metabolic encephalopathy; M62.82 Rhabdomyolysis; R47.81 Slurred speech; Z86.73 Personal history of transient ischemic attack (TIA), and cerebral infarction without residual deficits; E78.5 Hyperlipidemia, unspecified; E11.22 Type 2 diabetes mellitus with diabetic chronic kidney disease; I12.9 Hypertensive chronic kidney disease with stage 1 through stage 4 chronic kidney disease, or unspecified chronic kidney disease; N18.3 Chronic kidney disease, stage 3 (moderate); I48.91 Unspecified atrial fibrillation; Z79.84 Long term (current) use of oral hypoglycemic drugs; Z79.01 Long term (current) use of anticoagulants; E11.649 Type 2 diabetes mellitus with hypoglycemia without coma; E86.0 Dehydration; E87.6 Hypokalemia; D64.9 Anemia, unspecified
CPT/HCPCS: 36415; 70450; 71045; 76770; 80053; 81001; 82270; 82550; 82552; 82553; 82570; 82607; 82746; 82948; 83036; 83540; 83735; 84100; 84300; 84466; 84484; 85025; 85610; 85730; 87086; 93005; 96372; 99284; J0696; J3480; J7030; J7042; J7050; J7070

== ENCOUNTER 2020-02-01 16:50 | Observation (INO) | payer MEDICARE, OTHER ==
[~2020-02-01] VITALS: Ht 167.6 cm; Wt 76.7 kg
[~2020-02-01 16:50] MED LIST changes: +AMLODIPINE BESYL5 MG PO; +LEVOTHYROXINE50 MCG PO; +TRAZODONE HCL50 MG PO; +TRIAMTERENE-HCTZ1 EA PO
[2020-02-01 18:04] LABS: BASOPHILS % 0.5 % (0.0-1.0); EOSINOPHILS % 0.5 % (0.0-6.0); HEMATOCRIT 31.1 % (38.2-49.6); HEMOGLOBIN 10.2 g/dL (14.0-18.0); LYMPHOCYTES % 12.3 % (18.0-39.1); MEAN CORPUSCULAR HEMOGLOBIN 31.2 pg (28-32); MEAN CORPUSCULAR HGB CONC 32.8 g/dL (31-35); MEAN CORPUSCULAR VOLUME 95.1 fL (81-99); MONOCYTES # (AUTO) 0.6 (0.2-0.8); NEUTROPHILS # (AUTO) 6.1 (2.1-6.9); NEUTROPHILS % 77.8 % (38.7-80.0); PLATELET COUNT 301 x10e3/uL (140-360); RED BLOOD COUNT 3.27 x10e6/uL (4.3-5.7); RED CELL DISTRIBUTION WIDTH 14.5 % (11.7-14.4)
[2020-02-01 18:13] LABS: CLARITY,URINE HAZY (CLEAR); COLOR,URINE YELLOW (YELLOW)
[2020-02-01 18:14] LABS: KETONES,URINE NEGATIVE (NEGATIVE); LEUKOCYTE ESTERASE ,URINE NEGATIVE (NEGATIVE); NITRITE,URINE NEGATIVE (NEGATIVE); PROTEIN,URINE DIPSTICK 1+ (NEGATIVE); URINE UROBILINOGEN 0.2 mg/dL (0.2 - 1)
[2020-02-01 18:25] LABS: ALBUMIN 3.5 g/dL (3.5-5.0); ALBUMIN/GLOBULIN RATIO 0.9 (0.8-2.0); ANION GAP 17.4 mmol/L (8-16); CALCIUM 8.9 mg/dL (8.4-10.2); CREATININE, SERUM 4.13 mg/dL (0.72-1.25); POTASSIUM 5.4 mmol/L (3.5-5.1)
[2020-02-01 18:26] LABS: BACTERIA,URINE RARE /HPF
[2020-02-01 18:27] LABS: RBC,URINE 0-5 /HPF (0-5); WBC,URINE (MAN) 0-5 /HPF (0-5)
[2020-02-01 18:31] LABS: CREATINE KINASE MB 2.3 ng/mL (0-5.0)
[2020-02-01] MEDS ORDERED: DEXTROSE 50% SYRINGE 50 ML IV STA (18:40)
[2020-02-01] MEDS ORDERED: DEXTROSE 5%/0.45% SOD CHL 1,000 ML IV ONE (18:45)
[2020-02-01] MEDS ORDERED: SODIUM BICARBONATE 8.4% INJ 50 ML SYR IV STA (18:49)
[2020-02-01] MEDS ORDERED: DEXTROSE 50% SYRINGE 50 ML IV ONE (18:50)
[2020-02-01] MEDS ORDERED: SOD POLYSTYRENE SULFONATE SUSP 15 GM/60 ML BTL PO ONE (19:00)
[2020-02-01 22:42] VITALS: BP 148/81
[2020-02-01 22:45] VITALS: BP 148/81
[2020-02-02] VITALS (8 sets, daily range): BP systolic 110–148; BP diastolic 56–78
[2020-02-02] MEDS ORDERED: DEXTROSE 50% SYRINGE 50 ML IV PRN (09:45)
[2020-02-02] MEDS ORDERED: HYDRALAZINE HCL 25 MG TAB PO PRN (10:00)
[2020-02-02] MEDS ORDERED: DEXTROSE 50% SYRINGE 50 ML IV ONE (10:15)
[2020-02-02 10:20] LABS: BASOPHILS # (AUTO) 0.1 (0.0-0.1); BASOPHILS % 0.7 % (0.0-1.0); EOSINOPHILS # (AUTO) 0.2 (0.0-0.4); EOSINOPHILS % 2.9 % (0.0-6.0); HEMATOCRIT 27.2 % (38.2-49.6); HEMOGLOBIN 8.8 g/dL (14.0-18.0); LYMPHOCYTES # (AUTO) 1.6 (1.0-3.2); LYMPHOCYTES % 22.2 % (18.0-39.1); MEAN CORPUSCULAR HEMOGLOBIN 30.8 pg (28-32); MEAN CORPUSCULAR HGB CONC 32.4 g/dL (31-35); MEAN CORPUSCULAR VOLUME 95.1 fL (81-99); MONOCYTES # (AUTO) 0.7 (0.2-0.8); MONOCYTES % 9.9 % (4.4-11.3); NEUTROPHILS # (AUTO) 4.5 (2.1-6.9); NEUTROPHILS % 63.7 % (38.7-80.0); PLATELET COUNT 250 x10e3/uL (140-360); RED BLOOD COUNT 2.86 x10e6/uL (4.3-5.7); RED CELL DISTRIBUTION WIDTH 14.6 % (11.7-14.4)
[2020-02-02] MEDS ORDERED: TRESIBA100 UNIT/1 SC (10:36)
[2020-02-02] MEDS ORDERED: PIOGLITAZONE15 MG PO (10:36)
[2020-02-02] MEDS ORDERED: GLIMEPIRIDE2 MG PO (10:36)
[2020-02-02] MEDS ORDERED: CRESTOR40 MG PO (10:36)
[2020-02-02] MEDS ORDERED: LISINOPRIL2.5 MG PO (10:36)
[2020-02-02] MEDS ORDERED: TRIAMTERENE-HCTZ1 EA PO (10:36)
[2020-02-02 10:41] LABS: ANION GAP 16.3 mmol/L (8-16); CALCIUM 8.2 mg/dL (8.4-10.2); CREATININE, SERUM 3.79 mg/dL (0.72-1.25); POTASSIUM 4.3 mmol/L (3.5-5.1)
[2020-02-02] MEDS: INSULIN LISPRO 100 UNIT/1 ML 3ML VIAL SQ SCH ×3 (11:30→20:30)
[2020-02-02 14:48] LABS: INR 1.28; PROTHROMBIN TIME 16.6 seconds (11.9-14.5)
[2020-02-03 00:14] VITALS: BP 123/75
[2020-02-03 05:22] VITALS: BP 112/68
[2020-02-03 05:56] LABS: ANION GAP 14.3 mmol/L (8-16); CALCIUM 8.2 mg/dL (8.4-10.2); CREATININE, SERUM 3.52 mg/dL (0.72-1.25); POTASSIUM 4.3 mmol/L (3.5-5.1)
[2020-02-03] MEDS: INSULIN LISPRO 100 UNIT/1 ML 3ML VIAL SQ SCH (07:30)
[2020-02-03 07:43] VITALS: BP 112/68
[2020-02-03 08:31] VITALS: BP 134/53
[2020-02-03] MEDS ORDERED: METOPROLOL TARTRATE 50 MG TAB PO SCH (09:00)
[2020-02-03] MEDS ORDERED: LEVOTHYROXINE SODIUM 50 MCG TAB PO SCH (09:00)
[2020-02-03] MEDS ORDERED: AMLODIPINE BESYLATE 5 MG TAB PO SCH (09:00)
[2020-02-03] MEDS ORDERED: TRAZODONE HCL 50 MG TAB PO PRN (09:00)
[2020-02-03] MEDS ORDERED: WARFARIN SOD 2 MG TAB PO SCH (17:00)
[2020-02-03] MEDS ORDERED: INSULIN DEGLUDEC 25 UNIT SQ SCH (21:00)
== END 2020-02-03 11:20 | disposition home or self-care (01) ==
LOC: ER 17:13 → INTOOBSV 20:35 → ERHOLD 20:35 → MED/SURG3 21:51
PROVIDERS: ADMIT Internal Medicine; ATTEND Internal Medicine
DX: E11.649 Type 2 diabetes mellitus with hypoglycemia without coma (principal); N17.9 Acute kidney failure, unspecified; N39.0 Urinary tract infection, site not specified; E87.5 Hyperkalemia; E11.22 Type 2 diabetes mellitus with diabetic chronic kidney disease; I12.9 Hypertensive chronic kidney disease with stage 1 through stage 4 chronic kidney disease, or unspecified chronic kidney disease; N18.30 Chronic kidney disease, stage 3 unspecified; E86.0 Dehydration; T38.3X5A Adverse effect of insulin and oral hypoglycemic [antidiabetic] drugs, initial encounter; Z86.73 Personal history of transient ischemic attack (TIA), and cerebral infarction without residual deficits; Z79.4 Long term (current) use of insulin
CPT/HCPCS: 36415 ×3; 70450; 71045; 80048 ×2; 80053; 81001; 82550; 82553; 82948 ×3; 83036; 84484; 85025 ×2; 85610; 93005; 99284; G0378 ×3; J7799; U0002

== ENCOUNTER 2021-03-24 09:47 | Inpatient (IN) | payer MEDICARE ==
[~2021-03-24] VITALS: Ht 160 cm; Wt 76.7 kg
[~2021-03-24 09:47] MED LIST changes: +CRESTOR40 MG PO; +LISINOPRIL2.5 MG PO; +PIOGLITAZONE15 MG PO; +TRESIBA100 UNIT/1 SC
[2021-03-24] MEDS ORDERED: PHYTONADIONE 10 MG/ML AMP SQ ONE (10:00)
[2021-03-24 10:11] LABS: BASOPHILS % 0.5 % (0.0-1.0); EOSINOPHILS # (AUTO) 0.3 (0.0-0.4); EOSINOPHILS % 4.1 % (0.0-6.0); HEMATOCRIT 27.1 % (38.2-49.6); HEMOGLOBIN 8.4 g/dL (14.0-18.0); LYMPHOCYTES # (AUTO) 1.9 (1.0-3.2); LYMPHOCYTES % 25.5 % (18.0-39.1); MEAN CORPUSCULAR HEMOGLOBIN 28.1 pg (28-32); MEAN CORPUSCULAR VOLUME 90.6 fL (81-99); MONOCYTES # (AUTO) 0.6 (0.2-0.8); MONOCYTES % 7.8 % (4.4-11.3); NEUTROPHILS # (AUTO) 4.6 (2.1-6.9); NEUTROPHILS % 60.8 % (38.7-80.0); PLATELET COUNT 350 x10e3/uL (140-360); RED BLOOD COUNT 2.99 x10e6/uL (4.3-5.7); RED CELL DISTRIBUTION WIDTH 17.9 % (11.7-14.4)
[2021-03-24 10:31] LABS: ALBUMIN 3.4 g/dL (3.5-5.0); ALBUMIN/GLOBULIN RATIO 0.9 (0.8-2.0); ANION GAP 12.5 mmol/L (8-16); CALCIUM 8.7 mg/dL (8.4-10.2); CREATININE, SERUM 2.86 mg/dL (0.72-1.25); POTASSIUM 4.5 mmol/L (3.5-5.1)
[2021-03-24 12:54] VITALS: BP 134/63
[2021-03-24 13:04] VITALS: BP 132/63
[2021-03-24] MEDS ORDERED: SODIUM CHLORIDE 0.9% 250ML 250 ML ONE (15:04)
[2021-03-24] MEDS ORDERED: TRAZODONE HCL 50 MG TAB PO PRN (16:15)
[2021-03-24] MEDS ORDERED: DEXTROSE 50% SYRINGE 50 ML IV PRN (16:15)
[2021-03-24] MEDS: INSULIN LISPRO 100 UNIT/1 ML 3ML VIAL SQ SCH ×2 (16:30→22:36)
[2021-03-24 16:54] LABS: INR 2.85; PROTHROMBIN TIME 31.5 seconds (11.9-14.5)
[2021-03-24] MEDS: METOPROLOL TARTRATE 25 MG TAB PO SCH (17:00)
[2021-03-24] MEDS ORDERED: PHYTONADIONE 10 MG/ML AMP SC ONE (17:15)
[2021-03-24] MEDS ORDERED: EPOETIN ALFA-EPBX 10,000 UNIT/ML VIAL SC SCH (18:00)
[2021-03-24 20:00] VITALS: BP 104/57
[2021-03-24] MEDS: INSULIN GLARGINE 100 UNITS/ML VIAL SQ SCH (22:36)
[2021-03-24 23:06] VITALS: BP 104/57
[2021-03-25] VITALS (8 sets, daily range): BP systolic 112–138; BP diastolic 58–72
[2021-03-25 06:08] LABS: BASOPHILS # (AUTO) 0.1 (0.0-0.1); BASOPHILS % 0.6 % (0.0-1.0); EOSINOPHILS # (AUTO) 0.2 (0.0-0.4); EOSINOPHILS % 2.4 % (0.0-6.0); HEMATOCRIT 26.9 % (38.2-49.6); HEMOGLOBIN 8.2 g/dL (14.0-18.0); LYMPHOCYTES # (AUTO) 2.6 (1.0-3.2); LYMPHOCYTES % 26.4 % (18.0-39.1); MEAN CORPUSCULAR HEMOGLOBIN 27.6 pg (28-32); MEAN CORPUSCULAR HGB CONC 30.5 g/dL (31-35); MEAN CORPUSCULAR VOLUME 90.6 fL (81-99); MONOCYTES # (AUTO) 0.8 (0.2-0.8); MONOCYTES % 8.2 % (4.4-11.3); NEUTROPHILS % 61.3 % (38.7-80.0); PLATELET COUNT 376 x10e3/uL (140-360); RED BLOOD COUNT 2.97 x10e6/uL (4.3-5.7); RED CELL DISTRIBUTION WIDTH 17.9 % (11.7-14.4)
[2021-03-25 06:33] LABS: INR 2.3; PROTHROMBIN TIME 26.6 seconds (11.9-14.5)
[2021-03-25] MEDS: LEVOTHYROXINE SODIUM 50 MCG TAB PO SCH (06:50)
[2021-03-25 06:59] LABS: ALBUMIN 3.6 g/dL (3.5-5.0); ALBUMIN/GLOBULIN RATIO 0.9 (0.8-2.0); ANION GAP 14.6 mmol/L (8-16); CALCIUM 9.2 mg/dL (8.4-10.2); CREATININE, SERUM 2.43 mg/dL (0.72-1.25); POTASSIUM 4.6 mmol/L (3.5-5.1)
[2021-03-25] MEDS: INSULIN LISPRO 100 UNIT/1 ML 3ML VIAL SQ SCH ×4 (07:30→20:40)
[2021-03-25] MEDS: AMLODIPINE BESYLATE 5 MG TAB PO SCH (09:00)
[2021-03-25] MEDS: METOPROLOL TARTRATE 25 MG TAB PO SCH ×2 (09:00→16:12)
[2021-03-25] MEDS: GUAIFENESIN/CODEINE 5 ML LIQD PO PRN (20:02)
[2021-03-25] MEDS: INSULIN GLARGINE 100 UNITS/ML VIAL SQ SCH (20:40)
[2021-03-26] VITALS: BP 115/65
[2021-03-26 04:00] VITALS: BP 125/68
[2021-03-26] MEDS: GUAIFENESIN/CODEINE 5 ML LIQD PO PRN ×3 (05:33→16:18)
[2021-03-26] MEDS: LEVOTHYROXINE SODIUM 50 MCG TAB PO SCH (05:33)
[2021-03-26] MEDS: INSULIN LISPRO 100 UNIT/1 ML 3ML VIAL SQ SCH ×3 (07:30→16:30)
[2021-03-26 07:37] VITALS: BP 128/69
[2021-03-26 09:00] VITALS: BP 128/69
[2021-03-26] MEDS: METOPROLOL TARTRATE 25 MG TAB PO SCH ×2 (09:00→16:19)
[2021-03-26] MEDS: AMLODIPINE BESYLATE 5 MG TAB PO SCH (09:00)
[2021-03-26 10:37] LABS: INR 1.34; PROTHROMBIN TIME 17.5 seconds (11.9-14.5)
[2021-03-26 11:36] VITALS: BP 133/67
[2021-03-26 15:57] VITALS: BP 147/68
[2021-03-26] MEDS ORDERED: WARFARIN SODIUM1 MG PO (15:58)
[2021-03-26] MEDS ORDERED: WARFARIN SOD 1 MG TAB PO SCH (17:00)
== END 2021-03-26 17:45 | disposition home or self-care (01) | DRG 948 ==
LOC: ER 09:54 → ERHOLD 11:11 → MED/SURG2 11:52 → OBSVTOIN 16:13
PROVIDERS: ADMIT Internal Medicine; ATTEND Internal Medicine
DX: R79.1 Abnormal coagulation profile (principal); I69.351 Hemiplegia and hemiparesis following cerebral infarction affecting right dominant side; E88.09 Other disorders of plasma-protein metabolism, not elsewhere classified; E03.9 Hypothyroidism, unspecified; D63.8 Anemia in other chronic diseases classified elsewhere; E66.9 Obesity, unspecified; Z68.29 Body mass index [BMI] 29.0-29.9, adult; E11.22 Type 2 diabetes mellitus with diabetic chronic kidney disease; I12.9 Hypertensive chronic kidney disease with stage 1 through stage 4 chronic kidney disease, or unspecified chronic kidney disease; N18.9 Chronic kidney disease, unspecified; Z79.899 Other long term (current) drug therapy; Z20.822 Contact with and (suspected) exposure to COVID-19
CPT/HCPCS: 36415; 76705; 80053; 82784; 82948; 85025; 85610; 86850; 86900; 94799; 96372; 97139; 99251; 99284; J1815; J3430; J7050; P9017; U0002